=== PATIENT | female | born 1995 | race Caucasian/White ===

== ENCOUNTER → 2016-11-26 | Outpatient (CLI) | payer OTHER ==
--- NOTE | 2016-11-26 22:12 | US ---
EXAMINATION TYPE: US pelvic complete DATE OF EXAM: 11/26/2016 2:20 PM COMPARISON: NONE CLINICAL HISTORY: 21-year-old female R10.9 Unspecified abdominal pain N91.2 Amenorrhea. On cont rol for 7 years, never had a good outcome from control, always had problems, irregular cycles n ow, patient states she had bladder issues also Date of LMP: irregular - lasted 1 day in October, very was heavy, 3 day light cycle in September TECHNIQUE: Multiple transabdominal sonographic images of the pelvis are obtained. FINDINGS: Uterus: Anteverted measuring 8.3 x 4.1 x 3.0 cm Endometrial Stripe: 0.6 cm Right Ovary: 3.1 x 1.9 x 1.5 cm Left Ovary: 2.8 x 2.6 x 1.9 cm There is follicular change on both sides. No evident adnexal abnormality or cul-de-sac free fluid. IMPRESSION: Endometrial stripe measuring 6 mm thick. Normal follicular change on both sides. No pelvic free fluid .
== END | disposition home or self-care (01) ==
LOC: RADUSWWP 14:04
PROVIDERS: ATTEND Family Medicine
DX: R10.9 Unspecified abdominal pain (principal); N91.2 Amenorrhea, unspecified
CPT/HCPCS: 76856

== ENCOUNTER 2017-04-17 15:39 | Emergency (ER) | payer OTHER ==
[2017-04-17] MEDS ORDERED: PROCHLORPERAZINE 10 MG TAB PO STA (16:09)
[2017-04-17] MEDS ORDERED: KETOROLAC 60 MG/2 ML VIAL IM STA (16:09)
[2017-04-17] MEDS ORDERED: diphenhydrAMINE 25 MG CAP PO STA (16:09)
--- NOTE | 2017-04-17 16:10 | ED ---
General Adult HPI - General Chief complaint: Head Injury Stated complaint: Fall, head injury Time Seen by Provider: 04/17/17 16:01 Source: patient, RN notes reviewed, old records reviewed Mode of arrival: ambulatory Limitations: no limitations - History of Present Illness Initial comments: This is a 21-year-old female here for evaluation of headache. Patient head injury yesterday and has had headaches since. Mild nausea no vomiting history of epilepsy but no longer on epileptic medication. Patient's phone injury was a trip and fall rolling down a hill, did not lose consciousness - Related Data Home Medications Medication Instructions Recorded Confirmed Cetirizine HCl [Zyrtec] 10 mg PO DAILY PRN 04/17/17 04/17/17 Multivitamins, Thera [Multivitamin 1 tab PO DAILY 04/17/17 04/17/17 (formulary)] Allergies Allergy/AdvReac Type Severity Reaction Status Date / Time No Known Allergies Allergy Verified 04/17/17 15:47 Review of Systems ROS Statement: Those systems with pertinent positive or pertinent negative responses have been documented in the HPI. ROS Other: All systems not noted in ROS Statement are negative. Past Medical History Past Medical History: Seizure Disorder History of Any Multi-Drug Resistant Organisms: None Reported Additional Past Surgical History / Comment(s): hemorrhoid Past Psychological History: No Psychological Hx Reported Smoking Status: Never smoker Past Alcohol Use History: Occasional Past Drug Use History: None Reported General Exam Limitations: no limitations General appearance: alert, in no apparent distress Head exam: Present: atraumatic, normocephalic, normal inspection Eye exam: Present: normal appearance, PERRL, EOMI. Absent: scleral icterus, conjunctival injection, periorbital swelling ENT exam: Present: normal exam, mucous membranes moist Neck exam: Present: normal inspection. Absent: tenderness, meningismus, lymphadenopathy Respiratory exam: Present: normal lung sounds bilaterally. Absent: respiratory distress, wheezes, rales, rhonchi, stridor Cardiovascular Exam: Present: regular rate, normal rhythm, normal heart sounds. Absent: systolic murmur, diastolic murmur, rubs, gallop, clicks GI/Abdominal exam: Present: soft, normal bowel sounds. Absent: distended, tenderness, guarding, rebound, rigid Extremities exam: Present: normal inspection, full ROM, normal capillary refill. Absent: tenderness, pedal edema, joint swelling, calf tenderness Back exam: Present: normal inspection Neurological exam: Present: alert, oriented X3, CN II-XII intact Psychiatric exam: Present: normal affect, normal mood Skin exam: Present: warm, dry, intact, normal color. Absent: rash Course Vital Signs 04/17/17 04/17/17 15:48 16:52 Temperature 98.5 F 98.8 F Pulse Rate 77 67 Respiratory 16 16 Rate Blood Pressure 121/86 124/67 O2 Sat by Pulse 98 97 Oximetry - Reevaluation(s) Reevaluation #1: 04/17/17 17:17 Had headache is resolved Medical Decision Making - Medical Decision Making 21 female in the ER for evaluation of headache, closed head injury, CT negative , headache is improved, patient woke and to follow-up with her neurologist as an outpatient basis, patient can be discharged home - Radiology Data Radiology results: report reviewed (CT brain is negative for acute disease), image reviewed Disposition Clinical Impression: Closed head injury, Concussion without loss of consciousness Disposition: HOME SELF-CARE Condition: Good Instructions: Concussion (ED) Referrals: Jelena Chase MD [Primary Care Provider] - 1-2 days
[2017-04-17] MEDS ORDERED: IBUPROFEN 600 MG TAB PO STA (16:37)
--- NOTE | 2017-04-17 17:55 | CT ---
EXAMINATION TYPE: CT brain wo con DATE OF EXAM: 04/17/2017 COMPARISON: 03/15/2013 HISTORY: Fall with head injury yesterday. Hx of epilepsy. CT DLP: 1049.0 mGycm. Automated Exposure Control for Dose Reduction was Utilized. TECHNIQUE: CT scan of the head is performed without contrast. FINDINGS: Ventricles and sulci appear normal. There is no mass effect nor midline shift. There is no sign of intracranial hemorrhage. The calvarium is intact. IMPRESSION: Negative CT scan of the brain. No change..
[2017-04-17] MEDS ORDERED: HYDROcodone/APAP 5-325MG 1 EACH TAB PO STA (18:03)
[2017-04-17 18:08] VITALS: BP 111/55; PULSE 62; RESP 18
[2017-04-17 18:25] VITALS: TEMP 98
== END 2017-04-17 18:25 | disposition home or self-care (01) ==
LOC: EC 15:39
DX: S06.0X0A Concussion without loss of consciousness, initial encounter (principal); G40.909 Epilepsy, unspecified, not intractable, without status epilepticus; Z79.899 Other long term (current) drug therapy; W01.10XA Fall on same level from slipping, tripping and stumbling with subsequent striking against unspecified object, initial encounter; Z53.20 Procedure and treatment not carried out because of patient's decision for unspecified reasons
CPT/HCPCS: 70450; 99284; S0183

== ENCOUNTER 2018-01-28 13:37 | Emergency (ER) | payer OTHER ==
[2018-01-28] MEDS ORDERED: ONDANSETRON 4 MG/2 ML VIAL IVP STA (14:23)
[2018-01-28] MEDS ORDERED: KETOROLAC 30 MG/ML 1 ML VIAL IVP STA (14:23)
[2018-01-28] MEDS ORDERED: SODIUM CHLORIDE 0.9% 1,000 ML IV STA ×2 (14:23)
--- NOTE | 2018-01-28 14:31 | ED ---
Abdominal Pain HPI - General Chief Complaint: Abdominal Pain Stated Complaint: abd pain Time Seen by Provider: 01/28/18 13:59 Source: patient, RN notes reviewed, old records reviewed Mode of arrival: ambulatory Limitations: no limitations - History of Present Illness Initial Comments: 22-year-old female presents emergency Department today.Intermittent right lower quadrant abdominal pain for the past few months. She reports that she saw her primary care provider on Friday and was told to come to the emergency department if her symptoms continue to persist. Patient reports she's had a few episodes of nausea and vomiting. No fevers recently but had have some earlier this week. She denies any chest pain or shortness of breath. No urinary symptoms. Does report she's had some constipation. No history of sick contacts. No vaginal discharge. Last menstrual period was 3 weeks ago. Not concerned for . - Related Data Home Medications Medication Instructions Recorded Confirmed Cetirizine HCl [Zyrtec] 10 mg PO DAILY PRN 04/17/17 01/28/18 Albuterol Inhaler [Ventolin Hfa 1 - 2 puff INHALATION RT-Q6H PRN 01/28/18 Inhaler] Previous Rx's Medication Instructions Recorded Ondansetron Odt [Zofran Odt] 4 mg PO Q8HR PRN #12 tab 01/28/18 Allergies Allergy/AdvReac Type Severity Reaction Status Date / Time No Known Allergies Allergy Verified 01/28/18 14:14 Review of Systems ROS Statement: Those systems with pertinent positive or pertinent negative responses have been documented in the HPI. ROS Other: All systems not noted in ROS Statement are negative. Past Medical History Past Medical History: Seizure Disorder History of Any Multi-Drug Resistant Organisms: None Reported Additional Past Surgical History / Comment(s): hemorrhoid Past Psychological History: No Psychological Hx Reported Smoking Status: Never smoker Past Alcohol Use History: Occasional Past Drug Use History: None Reported General Exam - General Exam Comments Initial Comments: Physical is a 22-year-old female. Alert and oriented. Limitations: no limitations General appearance: alert, in no apparent distress Head exam: Present: atraumatic, normocephalic, normal inspection Eye exam: Present: normal appearance, PERRL, EOMI. Absent: scleral icterus, conjunctival injection, periorbital swelling ENT exam: Present: normal exam, mucous membranes moist Neck exam: Present: normal inspection. Absent: tenderness, meningismus, lymphadenopathy Respiratory exam: Present: normal lung sounds bilaterally. Absent: respiratory distress, wheezes, rales, rhonchi, stridor Cardiovascular Exam: Present: regular rate, normal rhythm, normal heart sounds. Absent: systolic murmur, diastolic murmur, rubs, gallop, clicks GI/Abdominal exam: Present: soft, tenderness (minimal RLQ tenderness. ), normal bowel sounds. Absent: distended, guarding, rebound, rigid Extremities exam: Present: normal inspection, full ROM, normal capillary refill. Absent: tenderness, pedal edema, joint swelling, calf tenderness Back exam: Present: normal inspection Neurological exam: Present: alert, oriented X3, CN II-XII intact Psychiatric exam: Present: normal affect, normal mood Skin exam: Present: warm, dry, intact, normal color. Absent: rash Course Vital Signs 01/28/18 01/28/18 13:46 17:48 Temperature 98.8 F 98 F Pulse Rate 76 75 Respiratory 18 16 Rate Blood Pressure 128/73 116/63 O2 Sat by Pulse 99 97 Oximetry Medical Decision Making - Medical Decision Making 22-year-old female presents emergency Department today.Intermittent right lower quadrant abdominal pain for the past few months. She reports that she saw her primary care provider on Friday and was told to come to the emergency department if her symptoms continue to persist. Patient reports she's had a few episodes of nausea and vomiting. No fevers recently but had have some earlier this week. Patient had minimal to no tenderness on exam. PAtient labs show mild leukocytosis. Discussed other etiolgoy such as ovarian cyst for RLQ pain. PAtient continues to persist with concern for appendicitis, CT scan completed. CT scan shows left ovarian cyst, no appendicitis. Discussed follow up with PCP and will dc with shelby. - Lab Data Result diagrams: 01/28/18 14:45 01/28/18 14:45 Lab Results 01/28/18 01/28/18 01/28/18 Range/Units 14:45 14:45 14:45 WBC 12.0 H (3.8-10.6) k/uL RBC 4.51 (3.80-5.40) m/uL Hgb 13.5 (11.4-16.0) gm/dL Hct 39.9 (34.0-46.0) % MCV 88.4 (80.0-100.0) fL MCH 29.9 (25.0-35.0) pg MCHC 33.8 (31.0-37.0) g/dL RDW 12.9 (11.5-15.5) % Plt Count 287 (150-450) k/uL Neutrophils % 53 % Lymphocytes % 38 % Monocytes % 4 % Eosinophils % 2 % Basophils % 1 % Neutrophils # 6.4 (1.3-7.7) k/uL Lymphocytes # 4.6 (1.0-4.8) k/uL Monocytes # 0.5 (0-1.0) k/uL Eosinophils # 0.3 (0-0.7) k/uL Basophils # 0.1 (0-0.2) k/uL Sodium 139 (137-145) mmol/L Potassium 3.8 (3.5-5.1) mmol/L Chloride 103 (98-107) mmol/L Carbon Dioxide 25 (22-30) mmol/L Anion Gap 11 mmol/L BUN 16 (7-17) mg/dL Creatinine 0.70 (0.52-1.04) mg/dL Est GFR (CKD-EPI)AfAm >90 (>60 ml/min/1.73 sqM) Est GFR (CKD-EPI)NonAf >90 (>60 ml/min/1.73 sqM) Glucose 78 (74-99) mg/dL Plasma Lactic Acid Ashwin 1.0 (0.7-2.0) mmol/L Calcium 9.2 (8.4-10.2) mg/dL Total Bilirubin 0.1 L (0.2-1.3) mg/dL AST 20 (14-36) U/L ALT 26 (9-52) U/L Alkaline Phosphatase 42 (38-126) U/L Total Protein 6.9 (6.3-8.2) g/dL Albumin 4.4 (3.5-5.0) g/dL Amylase 90 (30-110) U/L Lipase 76 (23-300) U/L Urine Color Urine Appearance (Clear) Urine pH (5.0-8.0) Ur Specific [place] (1.001-1.035) Urine Protein (Negative) Urine Glucose (UA) (Negative) Urine Ketones (Negative) Urine Blood (Negative) Urine Nitrite (Negative) Urine Bilirubin (Negative) Urine Urobilinogen (<2.0) mg/dL Ur Leukocyte Esterase (Negative) Urine RBC (0-5) /hpf Urine WBC (0-5) /hpf Ur Squamous Epith Cells (0-4) /hpf Amorphous Sediment (None) /hpf Urine Bacteria (None) /hpf Urine Mucus (None) /hpf Urine HCG, Qual (Not Detectd) 01/28/18 01/28/18 Range/Units 14:45 14:45 WBC (3.8-10.6) k/uL RBC (3.80-5.40) m/uL Hgb (11.4-16.0) gm/dL Hct (34.0-46.0) % MCV (80.0-100.0) fL MCH (25.0-35.0) pg MCHC (31.0-37.0) g/dL RDW (11.5-15.5) % Plt Count (150-450) k/uL Neutrophils % % Lymphocytes % % Monocytes % % Eosinophils % % Basophils % % Neutrophils # (1.3-7.7) k/uL Lymphocytes # (1.0-4.8) k/uL Monocytes # (0-1.0) k/uL Eosinophils # (0-0.7) k/uL Basophils # (0-0.2) k/uL Sodium (137-145) mmol/L Potassium (3.5-5.1) mmol/L Chloride (98-107) mmol/L Carbon Dioxide (22-30) mmol/L Anion Gap mmol/L BUN (7-17) mg/dL Creatinine (0.52-1.04) mg/dL Est GFR (CKD-EPI)AfAm (>60 ml/min/1.73 sqM) Est GFR (CKD-EPI)NonAf (>60 ml/min/1.73 sqM) Glucose (74-99) mg/dL Plasma Lactic Acid Ashwin (0.7-2.0) mmol/L Calcium (8.4-10.2) mg/dL Total Bilirubin (0.2-1.3) mg/dL AST (14-36) U/L ALT (9-52) U/L Alkaline Phosphatase (38-126) U/L Total Protein (6.3-8.2) g/dL Albumin (3.5-5.0) g/dL Amylase (30-110) U/L Lipase (23-300) U/L Urine Color Yellow Urine Appearance Clear (Clear) Urine pH 6.0 (5.0-8.0) Ur Specific [place] 1.020 (1.001-1.035) Urine Protein Negative (Negative) Urine Glucose (UA) Negative (Negative) Urine Ketones Negative (Negative) Urine Blood Negative (Negative) Urine Nitrite Negative (Negative) Urine Bilirubin Negative (Negative) Urine Urobilinogen <2.0 (<2.0) mg/dL Ur Leukocyte Esterase Small H (Negative) Urine RBC 1 (0-5) /hpf Urine WBC 13 H (0-5) /hpf Ur Squamous Epith Cells 2 (0-4) /hpf Amorphous Sediment Rare H (None) /hpf Urine Bacteria Rare H (None) /hpf Urine Mucus Rare H (None) /hpf Urine HCG, Qual Not Detected (Not Detectd) - Radiology Data Radiology results: report reviewed CT abdomen pelvis with contrast shows Left ovarian cyst no sign of appendicitis. Disposition Clinical Impression: Right sided abdominal pain, Nausea & vomiting, Left ovarian cyst Disposition: HOME SELF-CARE Condition: Good Instructions: Abdominal Pain (ED) Additional Instructions: Patient is to follow-up with your primary care provider. Return to the emergency department if any alarming signs or symptoms occur. Prescriptions: Ondansetron Odt [Zofran Odt] 4 mg PO Q8HR PRN #12 tab PRN Reason: Nausea Is patient prescribed a controlled substance at d/c from ED?: No When asked, does pt state using other controlled substances?: No If prescribed controlled substance>3 days was MAPS reviewed?: No If opioid is for acute pain is fill amount 7 days or less?: No If Rx opioid, was Start Talking consent form obtained?: No Referrals: Jelena Chase MD [Primary Care Provider] - 1-2 days Time of Disposition: 17:23
[2018-01-28 15:11] LABS: Basophils # (A) 0.1 k/uL (0-0.2); Basophils % (A) 1 %; Eosinophils # (A) 0.3 k/uL (0-0.7); Eosinophils % (A) 2 %; HCT 39.9 % (34.0-46.0); HGB 13.5 gm/dL (11.4-16.0); Lymphocytes # (A) 4.6 k/uL (1.0-4.8); Lymphocytes % (A) 38 %; MCH 29.9 pg (25.0-35.0); MCHC 33.8 g/dL (31.0-37.0); MCV 88.4 fL (80.0-100.0); Mean Platelet Volume 7.1; Monocytes # (A) 0.5 k/uL (0-1.0); Monocytes % (A) 4 %; Neutrophils # (A) 6.4 k/uL (1.3-7.7); Neutrophils % (A) 53 %; Platelet Count 287 k/uL (150-450); RBC 4.51 m/uL (3.80-5.40); RDW 12.9 % (11.5-15.5)
[2018-01-28 15:23] LABS: ALT 26 U/L (9-52); AST 20 U/L (14-36); Albumin 4.4 g/dL (3.5-5.0); Alkaline Phosphatase 42 U/L (38-126); Amylase 90 U/L (30-110); Anion Gap 11 mmol/L; Blood Urea Nitrogen 16 mg/dL (7-17); Calcium 9.2 mg/dL (8.4-10.2); Carbon Dioxide 25 mmol/L (22-30); Chloride 103 mmol/L (98-107); Glucose 78 mg/dL (74-99); Lipase 76 U/L (23-300); Potassium 3.8 mmol/L (3.5-5.1); Sodium 139 mmol/L (137-145); Total Bilirubin 0.1 mg/dL (0.2-1.3); Total Protein 6.9 g/dL (6.3-8.2)
[2018-01-28 15:24] LABS: Amorphous Sediment,Urine Rare /hpf; Appearance,Urine Clear (Clear); Bacteria,Urine Rare /hpf; Bilirubin,Urine Negative (Negative); Blood,Urine Negative (Negative); Color,Urine Yellow; Glucose,Urine (UA) Negative (Negative); Ketones,Urine Negative (Negative); Leukocyte Esterase,Urine Small (Negative); Mucus,Urine Rare /hpf; Nitrite,Urine Negative (Negative); Protein,Urine Negative (Negative); RBC,Urine 1 /hpf (0-5); Squamous Epithelial Cell,Urine 2 /hpf (0-4); Urobilinogen,Urine <2.0 mg/dL (<2.0); WBC,Urine 13 /hpf (0-5)
--- NOTE | 2018-01-28 17:19 | CT ---
EXAMINATION TYPE: CT abdomen pelvis w con DATE OF EXAM: 01/28/2018 COMPARISON: NONE HISTORY: Right lower quadrant pain and vomiting. CT DLP: 1077 mGycm Automated exposure control for dose reduction was used. TECHNIQUE: Helical acquisition of images was performed from the lung bases through the pelvis. CONTRAST: Performed without Oral Contrast and with IV Contrast, patient injected with 100 mL of Isovue M300. FINDINGS: Lung bases are clear. There is no pleural effusion. Liver spleen pancreas gallbladder appear normal. Bile ducts are not dilated. There is no adrenal mass. Kidneys show satisfactory contrast opacification. There is no hydronephrosi s. There is no retroperitoneal adenopathy. There is no ascites. There is 2.5 cm cyst on the left ovar y. Uterus is anteverted. Fecal pattern appears normal. Appendix is not seen. There is no sign of appe ndicitis. The bony structures appear normal. IMPRESSION: LEFT OVARIAN CYST. NO SIGN OF APPENDICITIS.
[2018-01-28 17:49] VITALS: BP 116/63; PULSE 75; RESP 16; TEMP 98
== END 2018-01-28 17:48 | disposition home or self-care (01) ==
LOC: EC 13:37
DX: N83.202 Unspecified ovarian cyst, left side (principal); R10.31 Right lower quadrant pain; R11.2 Nausea with vomiting, unspecified
CPT/HCPCS: 36415; 80053; 82150; 83605; 83690; 85025; 81001; 81025; 87040; 87086; 74177; 99284; 96374; 96375; 96361 ×3; J2405; J1885; Q9967

== ENCOUNTER → 2019-07-06 | Outpatient (CLI) | payer OTHER ==
[2019-07-06 13:58] LABS: HCT 38.8 % (34.0-46.0); HGB 13.1 gm/dL (11.4-16.0); MCH 30.6 pg (25.0-35.0); MCHC 33.7 g/dL (31.0-37.0); Mean Platelet Volume 6.4; Platelet Count 251 k/uL (150-450); RBC 4.27 m/uL (3.80-5.40); WBC 11.7 k/uL (3.8-10.6)
[2019-07-06 14:05] LABS: African American GFR (CKD) >90 (>60 ml/min/1.73 sqM); Glucose 93 mg/dL (74-99)
--- NOTE | 2019-07-06 14:19 | US ---
EXAMINATION TYPE: Transabdominal DATE OF EXAM: 07/06/2019 1:10 PM COMPARISON: NONE CLINICAL HISTORY: Z36 Confirm Dates. Confirm dates, 1 EXAM PERFORMED: Transabdominal (TA) EXAM MEASUREMENTS: GESTATIONAL AGE / DATING Physician Established: ( 6 weeks/5 days) EDC: 02/24/2020 Dates by LMP: (6 weeks/5 days) EDC: 02/24/2020 Dates by First Scan: This is 1st scan Dates by Current Scan for: ( 6 weeks/5 days) EDC: 02/24/2020 MATERNAL ANATOMY Uterus: 9.8 x 5.5 x 5.7cm, anteverted Right Ovary: 2.4 x 1.4 x 1.4cm Left Ovary: 3.5 x 2.5 x 2.9cm Post CDS / Adnexa: wnl Presence of free fluid: wnl Presence of corpus luteal cyst: left ovary: 2.6 x 1.6 x 1.9cm cystic area Presence of subchorionic bleed: wnl GESTATION / SURVEY CRL: 0.7cm (6 weeks/5 days) Yolk Sac (normal less than 6mm): 3.0mm Heart Rate: 113 bpm Rhythm: Normal IUP: Live IUP Date of LMP: 05/20/2019 Beta HcG (if available): Not available at time of exam IMPRESSION: Single live intrauterine measuring 6 weeks 5 days with a heart rate of 113bpm and an estima agustin delivery date of 02/24/2020. Dates are concordant with menstrual age.
[2019-07-06 19:24] LABS: Hepatitis B Surface Antigen Non-Reactive (Non-Reactive)
[2019-07-06 19:51] LABS: HIV 1 AB Non-Reactive (Non-Reactive); HIV 2 AB Non-Reactive (Non-Reactive); HIV AB P24 Non-Reactive (Non-Reactive); HIV P24 AG Non-Reactive (Non-Reactive)
== END | disposition home or self-care (01) ==
LOC: RADUSWWP 12:37
PROVIDERS: ATTEND Obstetrics & Gynecology
DX: Z36.9 Encounter for antenatal screening, unspecified (principal); Z34.01 Encounter for supervision of normal first pregnancy, first trimester; Z3A.01 Less than 8 weeks gestation of pregnancy
CPT/HCPCS: 36415; 76801; 82565; 82947; 85027; 86762; 86780; 86850; 86900; 86901; 87340; 87390

== ENCOUNTER 2020-02-21 05:51 | Inpatient (IN) | payer OTHER ==
--- NOTE | 2020-02-17 17:36 | P.HPOB ---
History of Present Illness H&P Date: 02/17/20 Chief Complaint: Requested induction of labor This patient is a pleasant 24-year-old 1 para 0 female estimated date of confinement 02/24/2020 estimated gestational age 39-4/7 weeks who presents to labor and delivery for requested induction of labor. Patient's care has been uncomplicated. Has been uncomfortable is requesting induction of labor. Review of Systems Genitourinary: Reports Menstruation: Reports amenorrhea Past Medical History History of Any Multi-Drug Resistant Organisms: None Reported Additional Past Surgical History / Comment(s): hemorrhoid Past Anesthesia/Blood Transfusion Reactions: No Reported Reaction Past Psychological History: No Psychological Hx Reported Smoking Status: Never smoker Past Alcohol Use History: None Reported Past Drug Use History: None Reported Medications and Allergies Home Medications Medication Instructions Recorded Confirmed Type Cetirizine HCl [Zyrtec] 10 mg PO DAILY PRN 04/17/17 01/28/18 History Albuterol Inhaler (Mhu) [Ventolin 1 - 2 puff INHALATION RT-Q6H PRN 01/28/18 01/28/18 History Hfa Inhaler] Ondansetron Odt [Zofran Odt] 4 mg PO Q8HR PRN #12 tab 01/28/18 Rx Allergies Allergy/AdvReac Type Severity Reaction Status Date / Time No Known Allergies Allergy Verified 01/28/18 14:14 Exam - OBG Physical Exam Abdomen: bowel sounds normal, no diffuse tenderness, no bruit present, no guarding noted, no hepatomegaly, no splenomegaly, no mass Vulva: both: normal Vagina: normal moisture, no discharge Cervix: no lesion (Cervix in the office is 1 cm dilated and uneffaced.), no discharge Uterus: enlarged (Fundal height is 39 cm) Results blood work shows she is A positive, rubella immune, RPR nonreactive, hepatitis B negative, HIV is nonreactive, Glucola was normal, the quad screen was negative, the ultrasounds have shown normal growth. Group B strep was positive Assessment and Plan Assessment: This is a pleasant 24-year-old 1 para 0 female 39-4/7 weeks who presents to labor and delivery for requested induction of labor. Plan is induction of labor and anticipate vaginal delivery. Patient is a positive group B strep culture and therefore will be started on IV antibiotics prophylactically. (1) 39 weeks gestation of Status: Acute Code(s): Z3A.39 - 39 WEEKS GESTATION OF SNOMED Code(s): 78281289 (2) Group B streptococcal carriage complicating Status: Acute Code(s): O99.820 - STREPTOCOCCUS B CARRIER STATE COMPLICATING SNOMED Code(s): 934752534560991 (3) Elective induction of labor planned Status: Acute Code(s): ZQA9088 - SNOMED Code(s): 063000026
[2020-02-21] MEDS ORDERED: AMPICILLIN 2,000 MG in SODIUM CHLORIDE 0.9% 100 ML IVPB STA (06:04)
[2020-02-21] MEDS ORDERED: OXYTOCIN 10 UNIT/ML 1 ML VIAL IM PRN (06:04)
[2020-02-21] MEDS ORDERED: TERBUTALINE 1 MG/ML VIAL SQ PRN (06:04)
[2020-02-21] MEDS ORDERED: OXYTOCIN 30 UNITS/500 ML NS 30 UNIT in SALINE 1 500ML.BAG IV SCH (06:04)
[2020-02-21] MEDS ORDERED: LIDOCAINE 0.5% (PF) 5 MG/ML (50 ML SDV) SQ PRN (06:04)
[2020-02-21] MEDS ORDERED: METHYLERGONOVINE 0.2 MG/ML 1 ML AMP IM PRN (06:04)
[2020-02-21] MEDS ORDERED: CARBOPROST TROMETHAMINE 250 MCG/ML 1 ML AMP IM PRN (06:04)
[2020-02-21 06:15] LABS: Basophils % (A) 0 %; Eosinophils # (A) 0.2 k/uL (0-0.7); Eosinophils % (A) 2 %; HCT 34.4 % (34.0-46.0); HGB 11.2 gm/dL (11.4-16.0); Lymphocytes # (A) 2.3 k/uL (1.0-4.8); Lymphocytes % (A) 24 %; MCH 27.9 pg (25.0-35.0); MCHC 32.4 g/dL (31.0-37.0); MCV 85.9 fL (80.0-100.0); Monocytes # (A) 0.5 k/uL (0-1.0); Monocytes % (A) 5 %; Neutrophils # (A) 6.5 k/uL (1.3-7.7); Neutrophils % (A) 67 %; Platelet Count 197 k/uL (150-450); RDW 13.3 % (11.5-15.5); WBC 9.7 k/uL (3.8-10.6)
[2020-02-21] MEDS: LACTATED RINGERS 1,000 ML IV SCH ×4 (06:16→22:12)
[2020-02-21] MEDS: CITRIC ACID-SODIUM CITRATE 15 ML CUP PO ONE ×2 (06:42→13:42)
[2020-02-21] MEDS ORDERED: AMPICILLIN 1,000 MG in SODIUM CHLORIDE 0.9% 50 ML IVPB SCH (10:04)
[2020-02-21] MEDS ORDERED: BUTORPHANOL 1 MG/ML 1 ML VIAL IV PRN (10:53)
[2020-02-21] MEDS ORDERED: fentaNYL (PF) 50 MCG/ML 5 ML AMP ONE (12:54)
[2020-02-21] MEDS ORDERED: ROPIVACAINE 5MG/ML 20ML VIAL ONE (12:54)
[2020-02-21] MEDS ORDERED: SODIUM CHLORIDE 0.9% 100 ML BAG ONE (12:54)
[2020-02-21] MEDS ORDERED: ONDANSETRON 4 MG/2 ML VIAL ONE (13:45)
[2020-02-21] MEDS ORDERED: OXYTOCIN 10 UNIT/ML 1 ML VIAL ONE (13:45)
[2020-02-21] MEDS ORDERED: DEXAMETHASONE SOD PHOSPHATE 4 MG/ML 1 ML VIAL ONE (13:45)
[2020-02-21] MEDS ORDERED: KETOROLAC 30 MG/ML 1 ML VIAL ONE (13:45)
[2020-02-21] MEDS ORDERED: MORPHINE SULFATE (PF) 0.3 MG/0.3 ML SYR ONE (13:45)
[2020-02-21] MEDS ORDERED: NALOXONE 0.4 MG/ML 1 ML VIAL IV PRN (14:01)
[2020-02-21] MEDS ORDERED: diphenhydrAMINE 50 MG/ML 1 ML VIAL IVP PRN (14:01)
[2020-02-21] MEDS ORDERED: HYDROmorphone 0.5 MG/0.5 ML SYRINGE IVP PRN (14:01)
[2020-02-21] MEDS ORDERED: ONDANSETRON 4 MG/2 ML VIAL IVP PRN (14:01)
[2020-02-21] MEDS ORDERED: ZOLPIDEM 5 MG TAB PO PRN (14:22)
[2020-02-21] MEDS ORDERED: METOCLOPRAMIDE 5 MG/ML 2 ML VIAL IVP PRN (14:22)
[2020-02-21] MEDS ORDERED: ACETAMINOPHEN TAB 325 MG TAB PO PRN (14:22)
[2020-02-21] MEDS ORDERED: MEASLES-MUMPS-RUBELLA VACC/PF 12,500 UNIT/0.5 ML VIAL SQ ONE (14:22)
[2020-02-21] MEDS ORDERED: OXYTOCIN 20 UNITS/1000 ML NS 1,000 ML IV SCH (14:30)
--- NOTE | 2020-02-21 14:31 | P.OP ---
Date of Procedure: 02/21/20 Preoperative Diagnosis: #1: 39-3/7 week . #2: Nonreassuring heart tones remote from delivery Postoperative Diagnosis: #1: Same. #2: Nuchal cord 1 Procedure(s) Performed: Primary low transverse section Anesthesia: epidural Surgeon: Sonny Marin Casting Cleaner #1: Jorge Lomas Estimated Blood Loss (ml): 800 Pathology: other (Placenta) Condition: stable Disposition: floor Indications for Procedure: Please see dictated H&P for intimate details of this patient's admission. In brief summary this is a pleasant 24-year-old 1 para 0 female 39-3/7 weeks gestation admitted to labor and delivery for requested induction of labor. On admission patient is 2-3 cm dilated has artificial rupture membranes for clear fluid. She does have some intermittent decelerations that resolved with position changes. She gets to 5-6 cm dilated and does get a dose of Stadol and then an epidural. Patient goes on to have persistent variable decelerations that are deep to approximately 80s despite the usual intrauterine resuscitative measures. Unfortunately she is remote from delivery and therefore recommend she proceed with primary section for delivery. Patient understands this surgery and risks including infection, bleeding, possible injury to bowel, bladder, vessels, and/or other organs. She understands risk of DVT and pulmonary embolism. All the patient's questions are answered written consent obtained Operative Findings: This is a vigorous viable female Apgars 8 and 9 delivery time was 1354 hrs. had a nuchal cord that was tight 1 Description of Procedure: This patient has a Mota catheter placed to straight drain. She is subsequently taken to the operating room where the epidural is dosed up for sufficient level of surgery. Patient has abdominal prep and drape. Scalpels and taken Pfannenstiel skin incision is then made. A second scalpel is taken down the fascia the fascia scored with a knife. Fascial incision extended superior and inferior without difficulty Rectus muscles are the peritoneum identified and entered sharply. Peritoneal incision extended superior and inferior without difficulty. Bladder blade is then placed. Bladder peritoneum was taken off the lower uterine segment sharply. Scalpels and taken low transverse uterine incision is then made. Using a hemostat I into the uterine cavity bluntly. There is loss of clear fluid. Incision extended bluntly. 's head is then guided through the incision with fundal pressure. Mouth and nares are bulb suctioned. There is a nuchal cord which was tight and reduced. Have deliver the rest this 's body. This is a vigorous viable female infant Apgars are 8 and 9 delivery time is 1354 hrs. After delivery of the the umbilical cord is doubly clamped and cut is handed off to the nurses in attendance. The placenta is then manually extracted intact. Uterus is then externalized and the uterine incision demarcated with Dorantes clamps. Uterine incision closed in 0 Vicryl running locked fashion 2 layers. Excellent hemostasis is noted. Bladder peritoneum was then reapproximated using a 3-0 Vicryl. Excess fluid is removed from the abdomen and pelvis. Uterus, tubes, and ovaries appear normal for term gestation. The parietal peritoneum was then identified and closed using 0 Vicryl running fashion. Rectus muscles reapproximated in 0 Vicryl interrupted fashion. Fascial incision closed using 0 PDS. Fascial incision is intact and hemostatic. Subcutaneous tissues then inspected and closed using a 3-0 Vicryl. Skin is and closed using foster. All counts correct 3. There are no complications. Infant and mother are stable in delivery room.
[2020-02-21] MEDS: SENNOSIDES-DOCUSATE SODIUM 1 EACH TAB PO SCH (21:09)
[2020-02-21] MEDS: KETOROLAC 30 MG/ML 1 ML VIAL IVP PRN (22:11)
[2020-02-22 05:38] LABS: Basophils % (A) 0 %; Eosinophils # (A) 0.1 k/uL (0-0.7); Eosinophils % (A) 0 %; Lymphocytes # (A) 1.4 k/uL (1.0-4.8); Lymphocytes % (A) 10 %; MCH 27.7 pg (25.0-35.0); MCHC 32.5 g/dL (31.0-37.0); Monocytes # (A) 0.8 k/uL (0-1.0); Monocytes % (A) 5 %; Neutrophils # (A) 11.9 k/uL (1.3-7.7); Neutrophils % (A) 83 %; Platelet Count 186 k/uL (150-450); RBC 3.41 m/uL (3.80-5.40); RDW 13.7 % (11.5-15.5); WBC 14.3 k/uL (3.8-10.6)
[2020-02-22 05:45] LABS: HGB 9.4 gm/dL (11.4-16.0)
--- NOTE | 2020-02-22 06:09 | P.PN ---
Progress Note - Text Progress Note Date: 02/22/20 24-year-old female status post section with Duramorph spinal postop day #1. Patient doing well, VAS 0 out of 10 in severity. No pruritus, no motor or sensory deficit. Patient ambulating tolerating diet. Overall patient doing well
--- NOTE | 2020-02-22 06:29 | P.PNOBGPC ---
Subjective - Subjective Patient reports: Reports appetite normal, Reports voiding normally, Reports pain well controlled, Reports ambulating normally : doing well Objective - Vital Signs Latest vital signs: Vital Signs Temp Pulse Resp BP Pulse Ox 02/22/20 05:00 14 02/22/20 03:39 96 F L 73 12 143/81 98 02/22/20 03:00 12 98 02/22/20 01:00 12 02/22/20 00:00 98.1 F 61 14 132/86 98 02/21/20 23:00 14 98 02/21/20 20:54 14 02/21/20 20:00 97.8 F 68 14 142/85 98 02/21/20 19:01 98 02/21/20 19:00 14 02/21/20 17:00 15 02/21/20 16:21 98 F 75 15 139/75 98 02/21/20 15:51 97.4 F L 74 15 127/80 02/21/20 15:21 15 123/70 98 02/21/20 15:06 65 15 119/65 02/21/20 14:51 78 15 123/63 98 02/21/20 14:36 75 15 122/56 98 02/21/20 14:21 97.4 F L 84 15 116/55 98 Intake and Output 02/21/20 02/21/20 02/22/20 14:59 22:59 06:59 Output Total 800 300 700 Balance -800 -300 -700 Output: Urine 300 700 Uretheral (Mota) 200 Estimated Blood Loss 800 Other: # Voids 1 - Exam Lungs: bilateral: normal Chest: Normal S1, Normal S2 Extremities: Present: normal Abdomen: Present: normal appearance, soft. Absent: distention, tenderness Incision: Present: normal, dry, intact Uterus: Present: normal, firm - Labs Labs: Abnormal Lab Results - Last 24 Hours (Table) 02/22/20 Range/Units 05:24 WBC 14.3 H (3.8-10.6) k/uL RBC 3.41 L (3.80-5.40) m/uL Hgb 9.4 L D (11.4-16.0) gm/dL Hct 29.0 L (34.0-46.0) % Neutrophils # 11.9 H (1.3-7.7) k/uL Assessment and Plan Assessment: Postoperative day #1. Patient is resting without new complaints. Vital signs are stable she is afebrile. Uterus is firm nontender and her incision is intact and dry. Hemoglobin today is 9.4 which is consistent with her preoperative hemoglobin. Plan today is advanced to regular diet, allow the patient to shower, encourage ambulation, continue routine postoperative care. (1) 39 weeks gestation of Current Visit: No Status: Acute Code(s): Z3A.39 - 39 WEEKS GESTATION OF SNOMED Code(s): 43175027 (2) Group B streptococcal carriage complicating Current Visit: No Status: Acute Code(s): O99.820 - STREPTOCOCCUS B CARRIER STATE COMPLICATING SNOMED Code(s): 606477556619984 (3) Elective induction of labor planned Current Visit: No Status: Acute Code(s): AFE1891 - SNOMED Code(s): 038422343
[2020-02-22] MEDS: SENNOSIDES-DOCUSATE SODIUM 1 EACH TAB PO SCH ×2 (08:00→19:55)
[2020-02-22] MEDS: KETOROLAC 30 MG/ML 1 ML VIAL IVP PRN (08:00)
[2020-02-22] MEDS: SIMETHICONE 80 MG CHEWABLE PO PRN ×2 (11:50→19:55)
[2020-02-22] MEDS: IBUPROFEN 600 MG TAB PO PRN (14:46)
[2020-02-22] MEDS: HYDROcodone/APAP 5-325MG 1 EACH TAB PO PRN (21:01)
[2020-02-23] MEDS: IBUPROFEN 600 MG TAB PO PRN ×2 (02:05→09:26)
[2020-02-23] MEDS: HYDROcodone/APAP 5-325MG 1 EACH TAB PO PRN (05:48)
--- NOTE | 2020-02-23 06:12 | P.PNOBGPC ---
Subjective - Subjective Patient reports: Reports appetite normal, Reports voiding normally, Reports pain well controlled, Reports ambulating normally : doing well Objective - Vital Signs Latest vital signs: Vital Signs Temp Pulse Resp BP Pulse Ox 02/23/20 00:00 94.8 F L 78 12 132/84 99 02/22/20 16:00 98.7 F 107 H 16 120/69 02/22/20 11:48 98.4 F 95 16 126/72 02/22/20 07:48 98.3 F 86 16 124/64 96 Intake and Output 02/22/20 02/22/20 02/23/20 14:59 22:59 06:59 Output Total 600 Balance -600 Output: Urine 600 Other: # Voids 1 - Exam Lungs: bilateral: normal Chest: Normal S1, Normal S2 Extremities: Present: normal Abdomen: Present: normal appearance, soft. Absent: distention, tenderness Incision: Present: normal, dry, intact Uterus: Present: normal, firm Assessment and Plan Assessment: Post operative day #2. Patient is resting without complaints and wishes to go home. Vital signs are stable she is afebrile. Uterus is firm nontender she's having normal lochia. Incision is intact and dry. Patient's tolerating regular diet, ambulating, urinating without difficulty. My impression is a normal course. Plan is to continue routine postoperative care and discharge home later today. (1) 39 weeks gestation of Current Visit: No Status: Acute Code(s): Z3A.39 - 39 WEEKS GESTATION OF SNOMED Code(s): 51807313 (2) Group B streptococcal carriage complicating Current Visit: No Status: Acute Code(s): O99.820 - STREPTOCOCCUS B CARRIER STATE COMPLICATING SNOMED Code(s): 668751667377376 (3) Elective induction of labor planned Current Visit: No Status: Acute Code(s): [id number] - SNOMED Code(s): 921013931
--- NOTE | 2020-02-23 06:18 | P.DS ---
Providers Date of admission: 02/21/20 05:51 Expected date of discharge: 02/23/20 Attending physician: Sonny Marin Primary care physician: Jelena Chase - Discharge Diagnosis(es) (1) 39 weeks gestation of Current Visit: No Status: Acute (2) Group B streptococcal carriage complicating Current Visit: No Status: Acute (3) Elective induction of labor planned Current Visit: No Status: Acute Hospital Course: Please see dictated H&P for intimate details of this patient's admission. Brief summary this pleasant 24-year-old 1 para 0 female 39-3/7 weeks gestation who is admitted to labor and delivery for requested induction of labor. Patient goes on to have a primary section for nonreassuring heart tones(nuchal cord). Please see dictated operative note. Postoperatively the patient does well postoperative and 2 cell to be stable for discharge home follow up with me in 1 week. Procedures: Induction of labor and primary low transverse section Patient Condition at Discharge: Good Plan - Discharge Summary New Discharge Prescriptions: New Ibuprofen [Motrin] 600 mg PO Q6HR PRN #40 tab PRN Reason: Mild Pain Or Fever >= 100.5 HYDROcodone/APAP 5-325MG [Russell 5-325] 1 each PO Q4HR PRN #18 tab PRN Reason: Moderate Pain No Action Pnv,Calcium 72/Iron/Folic Acid [ Plus Tablet] 1 tab PO DAILY Discharge Medication List Pnv,Calcium 72/Iron/Folic Acid [ Plus Tablet] 1 tab PO DAILY 02/21/20 [History] HYDROcodone/APAP 5-325MG [Russell 5-325] 1 each PO Q4HR PRN #18 tab 02/23/20 [Rx] Ibuprofen [Motrin] 600 mg PO Q6HR PRN #40 tab 02/23/20 [Rx] Follow up Appointment(s)/Referral(s): Sonny Marin MD [STAFF PHYSICIAN] - 03/02/20 8:30 am (Please see me on April 10 at 10:15 AM for a appointment as well.) Patient Instructions/Handouts: (DC) Activity/Diet/Wound Care/Special Instructions: No strenuous activity or heavy lifting for 6 weeks. No intercourse or anything per vagina for 6 weeks. Please call if any fever, chills, excessive vaginal bleeding, and/or abdominal pain. Discharge Disposition: HOME SELF-CARE
[2020-02-23] MEDS: SENNOSIDES-DOCUSATE SODIUM 1 EACH TAB PO SCH (09:25)
[2020-02-25 07:49] VITALS: BP 118/75; PULSE 85; RESP 18; TEMP 98.2
== END 2020-02-23 13:54 | disposition home or self-care (01) | DRG 787 ==
LOC: 4FBP 05:51
PROVIDERS: ADMIT Obstetrics & Gynecology; ATTEND Obstetrics & Gynecology
PROC: 00HU33Z Insertion of Infusion Device into Spinal Canal, Percutaneous Approach (ICD-10-PCS; principal; 2020-02-21 13:51)
PROC: 10907ZC Drainage of Amniotic Fluid, Therapeutic from Products of Conception, Via Natural or Artificial Opening (ICD-10-PCS; principal; 2020-02-21 13:51)
PROC: 3E0R3BZ Introduction of Anesthetic Agent into Spinal Canal, Percutaneous Approach (ICD-10-PCS; principal; 2020-02-21 13:51)
PROC: 10D00Z1 Extraction of Products of Conception, Low, Open Approach (ICD-10-PCS; principal; 2020-02-21 13:51)
DX: O69.1XX0 Labor and delivery complicated by cord around neck, with compression, not applicable or unspecified (principal); O99.354 Diseases of the nervous system complicating childbirth; O76 Abnormality in fetal heart rate and rhythm complicating labor and delivery; O99.824 Streptococcus B carrier state complicating childbirth; O99.52 Diseases of the respiratory system complicating childbirth; O99.62 Diseases of the digestive system complicating childbirth; J45.909 Unspecified asthma, uncomplicated; K21.9 Gastro-esophageal reflux disease without esophagitis; G40.909 Epilepsy, unspecified, not intractable, without status epilepticus; Z37.0 Single live birth; Z3A.39 39 weeks gestation of pregnancy
CPT/HCPCS: 85025; 86850; 86900; 86901; 88307; 90471; 90707